=== PATIENT | male | born 1925 | race Caucasian/White ===

== ENCOUNTER → 2016-11-16 | Outpatient (CLI) | payer MEDICARE ==
--- NOTE | 2016-11-16 17:43 | PCVCIMAG ---
APPROVED REPORT Study performed: 11/16/2016 12:38:10 EXAM: Comprehensive 2D, Doppler, and color-flow Echocardiogram Patient Location: Echo lab Status: routine Other Information Study Quality: Good Indications Aortic Valve Disease Prosthetic Valve Atrial Fibrillation Cardiomyopathy 2D Dimensions IVSd: 16.44 (7-11mm)LVOT Diam: 18.54 (18-24mm) LVDd: 50.13 mm PWd: 11.06 (7-11mm) LVDs: 38.04 (25-40mm) Left Atrium: 35.76 (27-40mm) Aortic Root: 21.19 mm LV Single Plane 4CH: 32.48 % LV Single Plane 2CH: 35.57 %Rojas's LVEF: 34.03 % Biplane EF: 34.2 % Volumes Left Atrial Volume (Systole) Single Plane 4CH: 94.90 mLSingle Plane 2CH: 128.79 mL LA ESV Index: 71.00 mL/m2 Aortic Valve AoV Peak Mario.: 2.73 m/s AO Peak Gr.: 30.52 mmHgLVOT Max P.68 mmHg AO Mean Gr.: 17.20 mmHgLVOT Mean P.72 mmHg AO V2 Mean: 1.93 m/sLVOT Max V: 0.86 m/s AO V2 VTI: 55.87 cmLVOT Mean V: 0.62 m/s KATIA (VTI): 0.85 [id number] V1 VTI: 17.60 cm KATIA Vmax: 0.85 cm2 AI Vmax: 4.87 m/sSV (LVOT): 47.51 mL AI [place]: 3.91 m/s2 AI PHT: 373.62 ms Mitral Valve MV E Max Mario.: 1.43 m/s MV PHT: 47.20 ms MVA (PHT): 4.66 cm2 IVRT: 110.73 ms Tricuspid Valve TR Peak Mario.: 3.35 m/s TR Peak Gr.: 44.86 mmHg TV Vmax: 0.84 m/s Left Ventricle Left ventricle is grossly normal size. Basal to mid inferior hypokinesis. Asymetric septal hypertrophy. Left ventricular systolic function is moderately decreased. LVEF is 35-40%. This study is not technically sufficient to allow evaluation of the LV diastolic function due to atrial fibrillation. Right Ventricle The right ventricle is normal size. The right ventricular systolic function is normal. Atria Left atrium is severely dilated. The interatrial septum is intact with no evidence for an atrial septal defect. Right atrium is dilated. 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 Increased velocity across the valve. Mechanical aortic valve is present. Prosthetic aortic valve is grossly normal in appearance. There are mildly elevated prosthetic aortic valve gradients. Mild aortic regurgitation. severe .8cm Mitral Valve Mitral valve leaflets are mildly thickened. Moderate to severe mitral regurgitation No evidence of mitral valve stenosis. Tricuspid Valve The tricuspid valve is normal in structure. There is no tricuspid valve stenosis. Mild to moderate tricuspid regurgitation with a PA pressure of 52mmHg.. Pulmonic Valve The pulmonary valve is normal in structure. Great Vessels Aortic root is normal in appearance. IVC is normal in size and collapses >50% with inspiration. Pericardium There is no pericardial effusion. Ascites is present. Large pleural effusion. <Conclusion> Left ventricle is grossly normal size. Basal to mid inferior hypokinesis. Asymetric septal hypertrophy. Left ventricular systolic function is moderately decreased. LVEF is 35-40%. This study is not technically sufficient to allow evaluation of the LV diastolic function due to atrial fibrillation. The right ventricle is normal size. Left atrium is severely dilated. 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 Increased velocity across the valve. Mild aortic regurgitation. No evidence of mitral valve stenosis. severe .8cm There is no pericardial effusion. Aortic root is normal in appearance.
== END | disposition home or self-care (01) ==
LOC: PCVCIMAG 13:00
PROVIDERS: ATTEND Internal Medicine Cardiovascular Disease
DX: I25.10 Atherosclerotic heart disease of native coronary artery without angina pectoris (principal); I48.91 Unspecified atrial fibrillation; I10 Essential (primary) hypertension; I42.9 Cardiomyopathy, unspecified; R18.8 Other ascites; Z95.2 Presence of prosthetic heart valve
CPT/HCPCS: 80061; 93005; 93306; G0463

== ENCOUNTER → 2016-12-20 | Outpatient (CLI) | payer MEDICARE | END | disposition home or self-care (01) | LOC: PCVCCLINIC 09:59 | PROVIDERS: ATTEND Internal Medicine Cardiovascular Disease | DX: I48.0 Paroxysmal atrial fibrillation (principal); I25.10 Atherosclerotic heart disease of native coronary artery without angina pectoris; I42.9 Cardiomyopathy, unspecified; I12.9 Hypertensive chronic kidney disease with stage 1 through stage 4 chronic kidney disease, or unspecified chronic kidney disease; N18.3 Chronic kidney disease, stage 3 (moderate); E78.00 Pure hypercholesterolemia, unspecified; Z95.2 Presence of prosthetic heart valve; Z95.4 Presence of other heart-valve replacement; Z79.82 Long term (current) use of aspirin; Z79.01 Long term (current) use of anticoagulants; Z87.891 Personal history of nicotine dependence | CPT/HCPCS: G0463 ==

== ENCOUNTER → 2016-12-24 | Outpatient (CLI) | payer MEDICARE | END | disposition home or self-care (01) | LOC: PCVCCLINIC 12:13 | PROVIDERS: ATTEND Internal Medicine Cardiovascular Disease | DX: Z51.81 Encounter for therapeutic drug level monitoring (principal); I48.91 Unspecified atrial fibrillation; I25.10 Atherosclerotic heart disease of native coronary artery without angina pectoris; E78.00 Pure hypercholesterolemia, unspecified; I12.9 Hypertensive chronic kidney disease with stage 1 through stage 4 chronic kidney disease, or unspecified chronic kidney disease; N18.3 Chronic kidney disease, stage 3 (moderate); Z95.2 Presence of prosthetic heart valve; Z79.01 Long term (current) use of anticoagulants | CPT/HCPCS: 85610 ==

== ENCOUNTER → 2016-12-31 | Outpatient (CLI) | payer MEDICARE | END | disposition home or self-care (01) | LOC: PCVCCLINIC 12:06 | PROVIDERS: ATTEND Internal Medicine Cardiovascular Disease | DX: Z51.81 Encounter for therapeutic drug level monitoring (principal); I48.91 Unspecified atrial fibrillation; I25.10 Atherosclerotic heart disease of native coronary artery without angina pectoris; I42.9 Cardiomyopathy, unspecified; E78.00 Pure hypercholesterolemia, unspecified; I10 Essential (primary) hypertension; G45.9 Transient cerebral ischemic attack, unspecified; Z95.2 Presence of prosthetic heart valve; Z79.01 Long term (current) use of anticoagulants | CPT/HCPCS: 85610 ==

== ENCOUNTER → 2017-02-01 | Outpatient (CLI) | payer MEDICARE | END | disposition home or self-care (01) | LOC: PCVCCLINIC 13:55 | PROVIDERS: ATTEND Internal Medicine Cardiovascular Disease | DX: I48.91 Unspecified atrial fibrillation (principal); I25.10 Atherosclerotic heart disease of native coronary artery without angina pectoris; I12.9 Hypertensive chronic kidney disease with stage 1 through stage 4 chronic kidney disease, or unspecified chronic kidney disease; N18.3 Chronic kidney disease, stage 3 (moderate); E78.00 Pure hypercholesterolemia, unspecified; Z95.2 Presence of prosthetic heart valve; G45.9 Transient cerebral ischemic attack, unspecified; Z79.01 Long term (current) use of anticoagulants | CPT/HCPCS: 85610 ==